=== PATIENT | male | born 1935 ===

== ENCOUNTER 2023-08-31 15:43 | Inpatient (IN) | payer OTHER ==
[~2023-08-31] VITALS: Ht 180.3 cm; Wt 75.0 kg
[2023-08-31] MEDS ORDERED: Ondansetron HCl 2 MG / ML 2ML Vial IV PRN (17:25)
[2023-08-31] MEDS ORDERED: Acetaminophen 325 MG TABLET PO PRN (17:25)
[2023-08-31 17:40] VITALS: BP 153/84
[2023-08-31] MEDS ORDERED: AMLO5 PO (18:29)
[2023-08-31] MEDS ORDERED: ATOR20 PO (18:30)
[2023-08-31] MEDS ORDERED: LEVOTHYROXINE50 MC9 PO (18:30)
[2023-08-31] MEDS ORDERED: FLOMAX0.4 MG PO (18:32)
[2023-08-31 18:45] LABS: Adenovirus Not Detected (NOT DETECT); Bordetella pertussis Not Detected (NOT DETECT); Chlamydophila pneumoniae Not Detected (NOT DETECT); Coronavirus 229E Not Detected (NOT DETECT); Coronavirus HKU1 Not Detected (NOT DETECT); Coronavirus NL63 Not Detected (NOT DETECT); Coronavirus OC43 Not Detected (NOT DETECT); Human Metapneumovirus Not Detected (NOT DETECT); Human Rhinovirus/Enterovirus Not Detected (NOT DETECT); Influenza A/2009-H1 Not Detected (NOT DETECT); Influenza A/H1 Not Detected (NOT DETECT); Influenza A/H3 Not Detected (NOT DETECT); Influenza B Not Detected (NOT DETECT); Mycoplasma pneumoniae Not Detected (NOT DETECT); Parainfluenza Virus 1 Not Detected (NOT DETECT); Parainfluenza Virus 2 Not Detected (NOT DETECT); Parainfluenza Virus 3 Not Detected (NOT DETECT); Parainfluenza Virus 4 Not Detected (NOT DETECT); Respiratory Syncytial Virus Not Detected (NOT DETECT); SARS-Cov-2 (COVID-19), BioFire Detected (NOT DETECT)
[2023-08-31 19:10] LABS: Source, Urine Clean Catch
--- NOTE | 2023-08-31 19:15 | NUR ---
pt arrived to the medical floor as a direct admit from [facility] [place]. pt is a/ox3, some mild confusion at this time per family is not his baseline. the pt was oriented to the room layout and call system. resp panel collected. ua collected. call light in reach. bed alarm on. bed in the low position
[2023-08-31 19:17] LABS: Bilirubin, Urine Neg (Neg); Blood, Urine 3+ (Neg); Glucose Qualitative, Urine Neg (Neg); Ketones, Urine 3+ (Neg); Leukocyte Esterase, Urine Neg (Neg); Nitrite, Urine Neg (Neg); Protein, Urine 1+ (Neg); Urobilinogen, Urine NORM (Normal)
[2023-08-31 19:25] VITALS: BP 155/83
[2023-08-31 19:34] LABS: Appearance, Urine Clear (Clear); Color, Urine Pale Yellow (P-Yellow)
[2023-08-31 19:35] LABS: Bacteria Few /hpf; Hyaline Casts 0-2 /lpf (0-2); Red Blood Cells, Urine 0-2 /hpf (0-2); Squamous Epithelial Cells Not Seen /hpf (Few); White Blood Cells, Urine 0-2 /hpf (0-5)
[2023-08-31] MEDS ORDERED: Miconazole Nitrate 2% 85 GM PWD TOP SCH (21:00)
[2023-09-01 03:05] VITALS: BP 151/85
[2023-09-01] MEDS ORDERED: Levothyroxine Sodium 0.05 MG Tab PO SCH (06:00)
--- NOTE | 2023-09-01 06:30 | NUR ---
END OF SHIFT SUMMARY PT A&O TO PERSON, PLACE. CONFUSED TO SITUATION AND DATE IN THE EVENING BUT THIS MORNING ABLE TO STATE HE WAS AT [facility] BECAUSE HE HAD BEEN FEELING SICK. UNABLE TO EXPLAIN SICK SYMPTOMS HE EXPERIENCED. PT INITIALLY TRYING TO GET OOB, PULLING ON CONDOM CATH. AVASURE PLACED FOR SAFETY. NO BM. DENIES SOB, REMAINS ON RA. AFEBRILE THIS AM. NO NEW EVENTS OVERNIGHT.
[2023-09-01 07:37] VITALS: BP 141/84
[2023-09-01 08:48] LABS: BASOPHILS ABSOLUTE AUTO 0.04 K/mm3 (0.00-0.23); BASOPHILS PERCENT AUTO 1 % (0-2); EOSINOPHILS ABSOLUTE AUTO 0.04 K/mm3 (0.00-0.68); EOSINOPHILS PERCENT AUTO 1 % (0-6); Hematocrit 44.3 % (37.0-53.0); Hemoglobin 14.4 g/dL (13.5-17.5); IMMATURE GRAN ABSOLUTE AUTO 0.02 K/mm3 (0.00-0.10); IMMATURE GRAN PERCENT AUTO 0 % (0-1); LYMPHOCYTES ABSOLUTE AUTO 0.66 K/mm3 (0.84-5.20); LYMPHOCYTES PERCENT AUTO 9 % (21-46); MONOCYTES PERCENT AUTO 16 % (4-13); Mean Corpuscular HGB 30.8 pg (26.0-34.0); Mean Corpuscular HGB Conc 32.5 g/dL (31.5-36.5); Mean Corpuscular Volume 95 fL (80-100); Mean Platelet Volume 9.5 fL (9.1-12.4); NEUTROPHILS PERCENT AUTO 74 % (41-73); Platelet Count 180 K/mm3 (150-400); RDW Coefficient Variation 13.4 % (11.7-14.2); RDW Standard Deviation 46.8 fL (35.1-46.3); Red Blood Cell Count 4.68 M/mm3 (4.30-5.90); White Blood Cell Count 7.66 K/mm3 (4.00-11.30)
[2023-09-01] MEDS ORDERED: AmLODIPine Besylate 5 MG Tab PO SCH (09:00)
[2023-09-01] MEDS ORDERED: Enoxaparin 30 MG/0.3 ML SYR SC SCH (09:00)
[2023-09-01] MEDS ORDERED: Tamsulosin HCl 0.4 MG Cap PO SCH (09:00)
[2023-09-01] MEDS ORDERED: Atorvastatin 10 MG Tab PO SCH (09:00)
[2023-09-01 09:06] LABS: Bun/Creatinine Ratio 18.1 (12.0-20.0); Calcium, Blood 8.7 mg/dL (8.5-10.1); Creatinine, Blood 1.16 mg/dL (0.60-1.20); Potassium, Blood 3.6 mmol/L (3.5-5.5)
[2023-09-01 15:23] VITALS: BP 115/82
--- NOTE | 2023-09-01 17:14 | NUR ---
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 SCROTAL SWELLING NOTED. PT HAS SOME CONFUSION, SLOWNESS TO VERBALLY RESPOND IS BASELINE PER HIS NIECE. MOSTLY APPROPRIATE CONVERSATION. 1-2 PERSON ASSISTANCE TO GET UP TO BEDSIDE COMMODE AND TO CHAIR THIS MORNING NEEDING VERBAL CUES AND REMINDERS. ON TELEMETRY IN SR, NO CALLS FROM FLYER BUILDER. VIRTUAL CROP QUANTITATIVE GENETICIST IN ROOM HAS NOT BEEN ALARMING TODAY. PT REMINDED TO DRINK AND TOLERATES GOOD FLUID INTAKE WHEN HE IS REMINDED. BACK IN BED, BED LOW, CALL LIGHT IN REACH, BED ALARM ON.
[2023-09-01 20:10] VITALS: BP 105/73
[2023-09-02 03:49] VITALS: BP 150/78
--- NOTE | 2023-09-02 07:29 | NUR ---
SHIFT SUMMARY: PATIENT ORIENTED TO SELF AND PLACE. PATIENT COOPERATIVE, X2 ASSIST FROM CHAIR TO BED. SLEPT WELL THROUGH NIGHT. DRY COUGH. CONTINUING ENHANCED PRECAUTIONS.
[2023-09-02 07:37] VITALS: BP 139/88
[2023-09-02] MEDS ORDERED: MICO100S (13:45)
[2023-09-02] MEDS ORDERED: Acetaminophen650 M1 PO (13:45)
[2023-09-02] MEDS ORDERED: MICONAZOLE NITR85 GM TOP (13:52)
[2023-09-02 15:08] LABS: ADENOVIRUS F 40/41 Not Detected (Not Detected); ASTROVIRUS Not Detected (Not Detected); C DIFFICILE TOXIN A/B Not Detected (Not Detected); CRYPTOSPORIDIUM Not Detected (Not Detected); CYCLOSPORA CAYETANENSIS Not Detected (Not Detected); ENTAMOEBA HISTOLYTICA Not Detected (Not Detected); ENTEROAGGREGATIVE E COLI Not Detected (Not Detected); ENTEROPATHOGENIC E COLI Not Detected (Not Detected); ENTEROTOXIGENIC E COLI Not Detected (Not Detected); GIARDIA LAMBLIA Not Detected (Not Detected); NOROVIRUS GI/GII Not Detected (Not Detected); PLESIOMONAS SHIGELLOIDES Not Detected (Not Detected); ROTAVIRUS A Not Detected (Not Detected); SALMONELLA Not Detected (Not Detected); SAPOVIRUS Not Detected (Not Detected); SHIGA-TOXIN-PRODUCING E COLI Not Detected (Not Detected); SHIGELLA/ENTEROINVASIVE E COLI Not Detected (Not Detected); VIBRIO Not Detected (Not Detected); VIBRIO CHOLERAE Not Detected (Not Detected); YERSINIA ENTEROCOLITICA Not Detected (Not Detected)
[2023-09-02 15:47] VITALS: BP 130/74
--- NOTE | 2023-09-02 16:15 | NUR ---
MR REINOSO IS ABLE TO ANSWER ORIENTATION QUESTIONS AND SEEMS CLEARER TODAY, BUT STILL HAS SOME CONFUSION. HE HAS NOT ATTEMPTED TO GET UP OUT OF BED OR CHAIR WITHOUT ASSISTANCE AND WAS ABLE TO VERBALISE AND DEMONSTRATE TO ME THAT IF HE NEEDS HELP HE WILL PRESS RED BUTTON STEWARD/STEWARDESS SECOND LIGHT. CARTON STAPLER WAS DISCONTINUED. PLAN FOR DISCHARGE HOME TODAY. TELEMETRY DISCONTINUED. AWAITING NIECE WHO IS COMING TO GIVE HIM A RIDE HOME. I SPOKE TO HER ABOUT 1PM AND SHE WAS ANTICIPATING AROUND 2 HOURS ETA. MR REINOSO WORKED WITH PHYSCIAL THERAPY TODAY. IMPROVED APPETITE, HE ATE MOST OF HIS BREAKFAST AND LUNCH AND HAS TAKEN IN A GOOD AMOUNT OF FLUIDS. HE HAS MINIMAL DISCOMFORT. BED LOW, CALL LIGHT IN REACH, BED ALARM ON.
--- NOTE | 2023-09-02 18:51 | NUR ---
DISCHARGE NIECE VERBALISED UNDERSTANDING OF WRITTEN AND VERBAL DISCHARGE INSTRUCTIONS. PIV REMOVED INTACT. PT WAS ASSISTED TO DRESS AND EMBEDDED SYSTEMS ENGINEER HELPED TRANSPORT HIM TO EXIT. DISCHARGE TIME 1730HRS.
== END 2023-09-02 18:00 | disposition home health service (06) | DRG 871 ==
LOC: MEDS → ENPENDDIS 09-02 11:02 → MEDS 09-02 18:00
PROVIDERS: ADMIT Family Medicine
DX: A41.9 Sepsis, unspecified organism (principal); U07.1 COVID-19; E78.5 Hyperlipidemia, unspecified; I10 Essential (primary) hypertension; E03.9 Hypothyroidism, unspecified; K40.90 Unilateral inguinal hernia, without obstruction or gangrene, not specified as recurrent; Z66 Do not resuscitate; R94.4 Abnormal results of kidney function studies; N40.0 Benign prostatic hyperplasia without lower urinary tract symptoms; Z90.5 Acquired absence of kidney; Z85.528 Personal history of other malignant neoplasm of kidney; Z79.890 Hormone replacement therapy
CPT/HCPCS: 0202U; 36415; 71045; 80048; 81001; 83605; 84145; 85025; 87040; 87507; 94760; 94762; 97110; 97116; 97162; A9270; J1650

== ENCOUNTER → 2023-08-31 | Emergency (ER) | payer OTHER ==
[~2023-08-31] MED LIST: AMLO5 PO; ATOR20 PO; Acetaminophen 325 MG TABLET PO ONE; FLOMAX0.4 MG PO; LEVOTHYROXINE50 MC9 PO; NS 1,000 ML IV SCH
[2023-08-31 17:10] LABS: BASOPHILS ABSOLUTE AUTO 0.04 K/mm3 (0.00-0.23); BASOPHILS PERCENT AUTO 0 % (0-2); EOSINOPHILS ABSOLUTE AUTO 0.02 K/mm3 (0.00-0.68); EOSINOPHILS PERCENT AUTO 0 % (0-6); Hematocrit 41.6 % (37.0-53.0); Hemoglobin 13.5 g/dL (13.5-17.5); IMMATURE GRAN ABSOLUTE AUTO 0.02 K/mm3 (0.00-0.10); IMMATURE GRAN PERCENT AUTO 0 % (0-1); LYMPHOCYTES ABSOLUTE AUTO 0.56 K/mm3 (0.84-5.20); LYMPHOCYTES PERCENT AUTO 6 % (21-46); MONOCYTES ABSOLUTE AUTO 1.46 K/mm3 (0.16-1.47); MONOCYTES PERCENT AUTO 16 % (4-13); Mean Corpuscular HGB Conc 32.5 g/dL (31.5-36.5); Mean Corpuscular Volume 96 fL (80-100); Mean Platelet Volume 9.9 fL (9.1-12.4); NEUTROPHILS ABSOLUTE AUTO 7.17 K/mm3 (1.96-9.15); NEUTROPHILS PERCENT AUTO 78 % (41-73); Platelet Count 184 K/mm3 (150-400); RDW Coefficient Variation 13.2 % (11.7-14.2); RDW Standard Deviation 46.8 fL (35.1-46.3); Red Blood Cell Count 4.35 M/mm3 (4.30-5.90); White Blood Cell Count 9.27 K/mm3 (4.00-11.30)
[2023-08-31 17:26] LABS: Albumin, Blood 3.5 g/dL (3.4-5.0); Bilirubin, Total 0.6 mg/dL (0.1-1.0); Bun/Creatinine Ratio 18.6 (12.0-20.0); Calcium, Blood 8.6 mg/dL (8.5-10.1); Creatinine, Blood 1.29 mg/dL (0.60-1.20); Globulin, Blood 3.4 g/dL (2.2-4.0); Potassium, Blood 4.1 mmol/L (3.5-5.5); Total Protein, Blood 6.9 g/dL (6.4-8.2)
== END ==
LOC: ER 15:52
PROVIDERS: Emergency Medicine
DX: U07.1 COVID-19 (principal)
CPT/HCPCS: 80053; 83880; 84484; 85025; A9270; J7030

== ENCOUNTER 2023-12-20 15:19 | Emergency (ER) | payer OTHER ==
[~2023-12-20] VITALS: Ht 180.3 cm; Wt 72.6 kg
== END 2023-12-20 21:15 | disposition home or self-care (01) ==
LOC: ER 15:19
DX: K40.90 Unilateral inguinal hernia, without obstruction or gangrene, not specified as recurrent (principal); K52.9 Noninfective gastroenteritis and colitis, unspecified; Z91.010 Allergy to peanuts; Z79.890 Hormone replacement therapy; Z79.899 Other long term (current) drug therapy
CPT/HCPCS: 83605; 99283

== ENCOUNTER → 2023-12-20 | Outpatient (CLI) | payer OTHER ==
[~2023-12-20] MED LIST changes: -Acetaminophen 325 MG TABLET PO ONE; +Acetaminophen650 M1 PO; +MICO100S; +MICONAZOLE NITR85 GM TOP; -NS 1,000 ML IV SCH
[2023-12-20 12:20] LABS: BASOPHILS ABSOLUTE AUTO 0.04 K/mm3 (0.00-0.23); BASOPHILS PERCENT AUTO 0 % (0-2); EOSINOPHILS ABSOLUTE AUTO 0.17 K/mm3 (0.00-0.68); EOSINOPHILS PERCENT AUTO 2 % (0-6); Hemoglobin 14.8 g/dL (13.5-17.5); IMMATURE GRAN ABSOLUTE AUTO 0.02 K/mm3 (0.00-0.10); IMMATURE GRAN PERCENT AUTO 0 % (0-1); LYMPHOCYTES ABSOLUTE AUTO 1.03 K/mm3 (0.84-5.20); LYMPHOCYTES PERCENT AUTO 11 % (21-46); MONOCYTES ABSOLUTE AUTO 0.85 K/mm3 (0.16-1.47); MONOCYTES PERCENT AUTO 9 % (4-13); Mean Corpuscular HGB 30.8 pg (26.0-34.0); Mean Corpuscular HGB Conc 32.9 g/dL (31.5-36.5); Mean Corpuscular Volume 94 fL (80-100); Mean Platelet Volume 9.6 fL (9.1-12.4); NEUTROPHILS ABSOLUTE AUTO 7.07 K/mm3 (1.96-9.15); NEUTROPHILS PERCENT AUTO 77 % (41-73); Platelet Count 224 K/mm3 (150-400); RDW Coefficient Variation 13.7 % (11.7-14.2); RDW Standard Deviation 46.5 fL (35.1-46.3); White Blood Cell Count 9.18 K/mm3 (4.00-11.30)
[2023-12-20 12:34] LABS: Albumin, Blood 3.6 g/dL (3.4-5.0); Bilirubin, Total 0.6 mg/dL (0.1-1.0); Bun/Creatinine Ratio 18.2 (12.0-20.0); Calcium, Blood 9.2 mg/dL (8.5-10.1); Creatinine, Blood 1.43 mg/dL (0.60-1.20); Globulin, Blood 3.5 g/dL (2.2-4.0); Potassium, Blood 3.6 mmol/L (3.5-5.5); Total Protein, Blood 7.1 g/dL (6.4-8.2)
== END | disposition home or self-care (01) ==
LOC: LAB 12:16 → LAB SHORT 12:16
PROVIDERS: Chiropractor
DX: R10.32 Left lower quadrant pain (principal)
CPT/HCPCS: 80053; 85025